=== PATIENT | female | born 1970 | race Caucasian/White ===

== ENCOUNTER 2018-11-08 01:50 | Emergency (ER) | payer OTHER ==
[2018-11-08] MEDS ORDERED: SODIUM CHLORIDE 0.9% FLUSH 10 ML SOL IV PRN (02:23)
[2018-11-08 02:28] VITALS: TEMP 98.1
[2018-11-08] MEDS ORDERED: HYDRALAZINE HYDROCHLORIDE 20 MG/ML SOL IV ONE ×2 (02:32→03:03)
[2018-11-08] MEDS ORDERED: HYDRALAZINE HYDROCHLORIDE 20 MG/ML SOL ONE ×2 (02:33→03:04)
[2018-11-08 02:37] LABS: BASOPHILS % (AUTO) 2 % (0-3); EOSINOPHILS % (AUTO) 7 % (0-9); HEMATOCRIT 42 % (35-47); HEMOGLOBIN 14.2 gm/dl (12.0-15.5); LYMPHOCYTES % (AUTO) 35.5 % (10-50); MEAN CORPUSCULAR HEMOGLOBIN 29.3 pg (27.0-32.0); MEAN CORPUSCULAR VOLUME 86 fL (81-99); MONOCYTES % (AUTO) 10.2 % (0-12); NEUTROPHILS % (AUTO) 46.3 % (37-80)
[2018-11-08 02:45] LABS: INR 1.17 (0.86-1.12)
[2018-11-08 02:52] VITALS: O2SAT 96
[2018-11-08 02:57] LABS: ALBUMIN 3.8 gm/dl (3.4-5.0); ALKALINE PHOSPHATASE 63 IU/L (46-116); ALT 27 IU/L (14-63); AST 19 IU/L (15-37); BILIRUBIN,TOTAL 0.3 mg/dl (0.2-1.0); BLOOD UREA NITROGEN 17 mg/dl (7-18); CALCIUM 9.2 mg/dl (8.5-10.1); CARBON DIOXIDE 29.9 mEq/L (21-32); CHLORIDE 102 mMol/L (98-107); CREATININE 0.84 mg/dl (0.60-1.00); GLUCOSE 117 mg/dl (74-106); POTASSIUM 3.6 mMol/L (3.5-5.1); SODIUM 141 mMol/L (136-145); TOTAL PROTEIN 7.3 gm/dl (6.4-8.2); TROP I < 0.017 ng/ml (0.000-0.056)
[2018-11-08] MEDS ORDERED: METOPROLOL TARTRATE 5 MG/5 ML SOL IV ONE ×2 (03:02→03:04)
[2018-11-08] MEDS ORDERED: KETOROLAC TROMETHAMINE 30 MG/ML SOL IV ONE (03:22)
[2018-11-08] MEDS ORDERED: LORAZEPAM 2 MG/ML SOL IV ONE (03:22)
[2018-11-08] MEDS ORDERED: LORAZEPAM 2 MG/ML SOL ONE (03:23)
[2018-11-08] MEDS ORDERED: KETOROLAC TROMETHAMINE 30 MG/ML SOL ONE (03:24)
[2018-11-08 04:07] VITALS: BP 168/98; PULSE 97; RESP 23
== END 2018-11-08 03:35 | disposition short-term general hospital (02) | DRG 392 ==
LOC: ED 01:50
DX: R11.0 Nausea (principal); R20.0 Anesthesia of skin; M54.6 Pain in thoracic spine; R29.818 Other symptoms and signs involving the nervous system; I10 Essential (primary) hypertension; R40.2362 Coma scale, best motor response, obeys commands, at arrival to emergency department; R40.2142 Coma scale, eyes open, spontaneous, at arrival to emergency department; R40.2252 Coma scale, best verbal response, oriented, at arrival to emergency department; R07.9 Chest pain, unspecified
CPT/HCPCS: 80053; 84484; 85025; 85610; 85730; 93005; 96374; 96375; 99284; 99291; J0360; J1885; J2060; J3490